=== PATIENT | female | born 1955 | race Caucasian/White ===

== ENCOUNTER 2019-01-01 06:43 | Outpatient (CLI) | payer OTHER, SELFPAY ==
[2019-01-01 10:55] LABS: Anion Gap 7.6 mmol/L (3-11); BUN 16 mg/dL (7-18); CO2 30.4 mmol/L (21.0-32.0); CREATININE 0.78 mg/dL (0.55-1.02); Calcium 9.1 mg/dL (8.5-10.1); Calculated LDL 156 mg/dL; Chloride 105 mmol/L (98-107); Cholesterol 225 mg/dL (50-200); Glucose 120 mg/dL (70-100); HDL Cholesterol 44 mg/dL (40-60); Sodium 143 mmol/L (136-145); Triglyceride 126 mg/dL (30-150)
[2019-01-01 11:02] LABS: Hemoglobin A1C 6.9 % (4.5-6.2)
== END 2019-01-01 07:03 ==
PROVIDERS: PCP Nurse Practitioner Family; Visit Provider Nurse Practitioner Family
DX: E78.5 Hyperlipidemia, unspecified (principal); I10 Essential (primary) hypertension; R73.03 Prediabetes
CPT/HCPCS: 36415; 80048; 80061; 83721; 83036

== ENCOUNTER 2019-01-09 14:26 | Outpatient (REF) | payer OTHER, MEDICARE, SELFPAY ==
--- NOTE | 2019-01-09 11:40 | PAPFT_PTH ---
PATIENT: Cee Muhammad LOC: [facility] U#:[id number] AGE/SX: 63/F ROOM: RE01/09/[address]: CHRISTINA Perez : 1955 BED: DIS: 01/09/2019 SPEC #: [id number] RECD: 01/12/19 12:52 STATUS: ENA REMerissa #: [id number] LAILA: 01/09/19 11:[address]: Shasta Hudson DEPT: [facility] Cytology RECD BY: Rosenda Perry Tissues: 1 - CX/ENDOCX FOR PAP SMEARS Procedures: PAP THIN PREP/UVM Screening HPV DNA PROBE Comments: [id number]
== END 2019-01-09 14:46 ==
LOC: LBN 14:26
PROVIDERS: PCP Nurse Practitioner Family; Visit Provider Nurse Practitioner Family
DX: Z12.4 Encounter for screening for malignant neoplasm of cervix (principal); Z11.51 Encounter for screening for human papillomavirus (HPV)
CPT/HCPCS: 88142; 87624

== ENCOUNTER 2019-03-10 00:46 | Outpatient (CLI) | payer OTHER, MEDICARE, SELFPAY ==
--- NOTE | 2019-03-10 15:08 | DI.DEXA_ITS ---
EXAM: XR DEXA BONE DENSITY W/WO NADIA INDICATION: Postmenopausal screening. COMPARISON: No exams were available for comparison TECHNIQUE: 2D digital imaging was performed. FINDINGS: The scanogram is unremarkable. For the left forearm, T-score of-0.3 and a Z-score of 1.3 are within the normal range. For the left hip a T-score 0.5 and a Z-score 1.7 are within the normal range. For t he lumbar spine a T-score of 1.2 and a Z-score of 3.0 are also within the normal range.
--- NOTE | 2019-03-10 15:08 | DI.MAMMO_ITS ---
EXAM: MG MAMMO SCREENING CLINICAL HISTORY: screening, Z12.31. TECHNIQUE: Mammograms were interpreted according to the usual protocol including computer analysis w [employer] CAD system, tomosynthesis and C-view imaging. COMPARISON: No exams were available for comparison FINDINGS: The breast tissue is composed of heterogeneous fibronodular densities, which lowers the sensitivity o f the study. There is no dominant mass. There are no suspicious calcifications. There has been no a ppreciable interval change when compared with prior images. IMPRESSION: There is no evidence of malignancy, category 1. Annual screening mammography is recommended. BI-RADS category C. BI-RADS Cat 1 - Negative Breast Density - Category C - Heterogeneously dense
== END 2019-03-10 01:06 ==
PROVIDERS: PCP Nurse Practitioner Family; Visit Provider Nurse Practitioner Family
DX: Z12.31 Encounter for screening mammogram for malignant neoplasm of breast (principal); Z78.0 Asymptomatic menopausal state; Z13.820 Encounter for screening for osteoporosis
CPT/HCPCS: 77063; 77067; 77080

== ENCOUNTER 2019-04-17 00:54 | Outpatient (CLI) | payer OTHER, MEDICARE, SELFPAY ==
[2019-04-17 09:01] LABS: ALT 32 U/L (14-59); AST 19 U/L (15-37); Albumin 3.8 g/dL (3.4-5.0); Alkaline Phosphatase 108 U/L (46-116); Anion Gap 10.3 mmol/L (3-11); BUN 13 mg/dL (7-18); Bilirubin, Total 0.4 mg/dL (0.2-1.0); CO2 26.7 mmol/L (21.0-32.0); CREATININE 0.69 mg/dL (0.55-1.02); Calcium 9.1 mg/dL (8.5-10.1); Calculated LDL 46 mg/dL; Chloride 107 mmol/L (98-107); Cholesterol 119 mg/dL (50-200); Glucose 110 mg/dL (70-100); HDL Cholesterol 60 mg/dL (40-60); Potassium 3.7 mmol/L (3.5-5.1); Sodium 144 mmol/L (136-145); Total Protein 6.9 g/dL (6.4-8.2); Triglyceride 65 mg/dL (30-150)
== END 2019-04-17 01:14 ==
PROVIDERS: PCP Nurse Practitioner Family; Visit Provider Nurse Practitioner Family
DX: E11.9 Type 2 diabetes mellitus without complications (principal); E78.5 Hyperlipidemia, unspecified
CPT/HCPCS: 36415; 80053; 80061

== ENCOUNTER 2019-05-01 07:29 | Day surgery (SDC) | payer OTHER, MEDICARE, SELFPAY ==
[2019-05-01 07:42] VITALS: BP 138/72; PULSE 63; RESP 18; TEMP 36.1; O2SAT 97
--- NOTE | 2019-05-01 08:20 | HPE_ITS ---
Date of service: 05/01/19 Time of Service: 08:20 Assessment and Plan Assessment and plan (1) Encounter for screening colonoscopy: Status: Acute Assessment and plan: I advised colonoscopy. The procedure was described including the risks of perforation with need for surgery or bleeding. Prep instructions discussed. Patient agrees to proceed. History of Present Illness Narrative: 63 y/o female with history of HTN, PB, hyperlipidemia and Pre- Diabetes presents for colonoscopy screening pre-op. Her last screening was in 2008, which was unremarkable. She denies a family history of colon cancer. She denies any changes in bowel habits including bloody or black tarry stools, abdominal pain, diarrhea or constipation. She denies constitutional symptoms. Denies use of marijuana or any other recreational or illegal drugs. She denies chest pain, palpitations, dyspnea or dyspnea with exertion. She walks on her treadmill x 1 hr/day. She denies prior history or family history of adverse reactions or complications with anesthesia. She denies having any implanted metal in her body. Review of Systems All systems reviewed & are unremarkable except as noted in HPI and below PFSH Medical History Essential hypertension (Chronic) Essential tremor (Chronic) Hyperlipidemia (Chronic) Obstructive sleep apnea (Chronic) CPAP. Original PSG 01/19/14 Type 2 diabetes mellitus (Chronic) Vaginal atrophy (Chronic) Surgical History History of bilateral tubal ligation (Acute ~1997) S/P ORIF (open reduction internal fixation) fracture (Acute 07/30/11) Right fibula Family History Mother Type 2 diabetes mellitus Breast cancer in her 60s Macular degeneration Father Hypertension Hyperlipidemia Heart disease Chronic lymphocytic leukemia Skin cancer Hodgkins lymphoma Sister No problems noted. Sister Hyperlipidemia Type 2 diabetes mellitus Hypothyroidism Hypertension Sister Osteopenia Maternal Grandfather , at 80 No problems noted. Maternal Grandmother , at 55 of rheumatic heart disease Rheumatic heart disease Paternal Grandfather , at 78 Bladder cancer Prostate cancer Heart disease Paternal Grandmother , at 74 Type 2 diabetes mellitus Heart disease Social History Smoking/Tobacco Use Status: Never Second Hand Exposure: No Alcohol Intake: current Alcohol Intake frequency: holidays/special occasions only Drug use: Never Substance use type: does not use Caregiver/Support person: No Household members: spouse Housing: house Communication Needs: None Do you need help understanding health information?: Never Pets and animals: No Sexually active: Yes Do you think of yourself as: straight/heterosexual Current gender identity: female What is your relationship status?: How often do you talk on the phone with friends or family?: twice per week How often do you get together with friends or relatives?: once per week How often do you attend jehovah's witness or jain services?: 1-3 times per year Do you belong to any clubs or organized social groups?: yes Panel score (0-1 are the most socially isolated patients): 3 What type of physical activity do you participate in: other Details: treadmill Duration: 30-45 minutes/day Frequency: daily Dot/Sikhism: Congregation Special dot needs: No Seatbelt use: always Helmet use: Yes Helmet use: always Drive intox 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 Do you feel safe at home: Yes Do you feel safe in your relationship?: Yes Female Reproductive History Menstrual Menopause type: natural History History 0 Para Hx # Term Pregnancies Multiple births Hx # Pregnancies Ectopic pregnancies AB induced Hx Number of Living Children AB spontaneous Meds Home Medications and Allergies Home Medications Medication Instructions Recorded Confirmed Type conjugated estrogens 0.625 mg/gram 0.3125 mg VG .Twice a week #30 gm 01/09/19 05/01/19 Rx vaginal cream lisinopril 10 1 tab PO DAILY #90 tab 01/09/19 05/01/19 Rx mg-hydrochlorothiazide 12.5 mg tablet metformin 500 mg tablet 500 mg PO BID #180 tab 01/09/19 05/01/19 Rx pneumoc 13-noel conj-dip cr(PF) 0.5 0.5 ml IM ONCE #0.5 ml 01/09/19 04/16/19 Rx mL IM syringe rosuvastatin 10 mg tablet 10 mg PO DAILY #90 tab 01/09/19 05/01/19 Rx Allergies Allergy/AdvReac Type Severity Reaction Status Date / Time No Known Allergies Allergy Unverified 05/01/19 07:40 Exam Const General: healthy appearing and not in acute distress Nutritional Appearance: well nourished Orientation: oriented x3 [facility] Head: normal to inspection Eyes Sclera: sclerae normal Pupils: PERRL Neck Neck: no lymphadenopathy Thyroid: thyroid normal Resp Effort & Inspection: normal respiratory effort Auscultation: clear to auscultation bilaterally and no wheezes Cardio Rate: regular rate Rhythm: regular rhythm GI Inspection: non-distended Palpation: soft, no hepatosplenomegaly, no hernias and nontender Skin General skin exam: no rashes or lesions noted Neuro General: alert Cognition: normal cognition Extrem General: normal to inspection Psych Affect: normal affect Attitude: cooperative Results Last Vital Signs Temp 97.0 F L 05/01/19 07:42 Pulse 63 05/01/19 07:42 Resp 18 05/01/19 07:42 BP 138/72 05/01/19 07:42 Pulse Ox 97 05/01/19 07:42
--- NOTE | 2019-05-01 08:22 | W.PM.DSUDISC ---
Discharge Plan Disposition Patient Disposition: HOME Condition: Good Discharge Details Reason For Visit: Colonoscopy Attending Provider: Zoë Manning Primary Care Provider: Shasta Hudson Home Meds and New Rx's Prescriptions: Continued lisinopril-hydrochlorothiazide 10-12.5 mg tablet 1 tab PO DAILY Qty: 90 RF: 4 Prevnar 13 (PF) 0.5 mL syringe 0.5 ml IM ONCE Qty: 0.5 RF: 0 metformin 500 mg tablet 500 mg PO BID Qty: 180 RF: 4 rosuvastatin 10 mg tablet 10 mg PO DAILY Qty: 90 RF: 4 conjugated estrogens 0.625 mg/gram cream 0.3125 mg VG .Twice a week Qty: 30 RF: 4 Discharge Instructions Additional Instructions: Findings: Your colonoscopy was normal but the prep was poor and the colonoscopy could not be completed. Follow up: Consider repeat colonoscopy. Please call if you develop: fevers >101.5 Nausea or Vomiting Abdominal pain that is not transient DAY SURGERY UNIT POST COLONOSCOPY INSTRUCTIONS 1. Because there will be medication in your system for the next 24 hours, you may feel a little sleepy. Your coordination will be affected. Therefore: a. Do not drive or operate dangerous equipment for 24 hours. b. Do not drink alcohol beverages for 24 hours (not even beer). c. Plan to go home and rest for the day. 2. Generally there are no restrictions on your activity after a day or so has gone by, but you may feel a bit fatigued for a few days. 3 After you arrive home you may have a light meal and return to a normal diet as you can tolerate it without feeling sick to your stomach. 4. After surgery, you may feel pain or discomfort. This should be only transient, but if it persists please contact your doctor. 5. If there are any questions regarding the findings of your procedure, please feel free to contact your doctor. 6. If you are unable to contact your doctor with a problem, contact the hospital at [phone]. 7. Continue all your regular medications unless directed otherwise. I understand the above instructions and have no questions. Signature of Patient or Responsible Adult Escort Date/Time Name of Responsible Adult Escort Signature of Nurse Date/Time Activity:: Activity as Tolerated Diet:: As Tolerated Discharge Orders Discharge Orders: Discharge Order (Routine); Ordered 05/01/19 Ordered By: Zoë Manning DS: Diagnosis Discharge Diagnosis (1) Encounter for screening colonoscopy: Status: Acute
[2019-05-01] MEDS: Lactated Ringers 1,000 ML 80 ML IV (08:24)
[2019-05-01 10:13] VITALS: BP 129/68; PULSE 50; RESP 16; TEMP 36.3; O2SAT 99
--- NOTE | 2019-05-01 12:12 | COLE_ITS ---
DATE OF PROCEDURE: May 01, 2019 PREOPERATIVE DIAGNOSIS: Screening. POSTOPERATIVE DIAGNOSIS: Incomplete colonoscopy due to poor prep. SURGEON: Zoë Manning M.D. ANESTHESIA: General. INDICATIONS: This is a 63-year-old woman who presents for routine colon evaluation. Her last proced ure ten years ago was normal. She has no family history of colon cancer. PROCEDURE: The patient was placed in the left Reid position. Propofol was titrated to sedation. Di gital rectal examination revealed no abnormalities. The scope was advanced to the hepatic flexure. I was not able to traverse the corner despite abdominal pressure. The patient's prep was very margin al with about 40% of the colon wall being obscured. I therefore did not make a concerted effort to g o beyond the hepatic flexure, given the fact that the quality of her prep was so poor. The scope was slowly withdrawn with no large abnormalities noted, but a polyp could definitely be missed. She shreice erated the procedure well and was stable to recovery. I discussed with her the need to repeat the co lonoscopy. Her prep did not begin working until about 12:30 at night, so the next time we will plan to do a GoLYTELY prep and start earlier in the day. I will have my office contact her to reschedule. cc: CHRISTINA Perez
== END 2019-05-01 10:28 | disposition home or self-care (01) ==
PROVIDERS: PCP Nurse Practitioner Family; Visit Provider Surgery
PROC: 0DJD8ZZ Inspection of Lower Intestinal Tract, Via Natural or Artificial Opening Endoscopic (ICD-10-PCS; CPT 45378; principal; 2019-05-01 09:00)
DX: Z12.11 Encounter for screening for malignant neoplasm of colon (principal); G47.33 Obstructive sleep apnea (adult) (pediatric); I10 Essential (primary) hypertension; E11.9 Type 2 diabetes mellitus without complications; Z79.84 Long term (current) use of oral hypoglycemic drugs
CPT/HCPCS: 45378; NC

== ENCOUNTER 2019-06-05 06:10 | Day surgery (SDC) | payer OTHER, SELFPAY ==
[2019-06-05 06:27] VITALS: BP 142/72; PULSE 57; RESP 16; TEMP 36.4; O2SAT 98
[2019-06-05] MEDS: Lactated Ringers 1,000 ML 80 ML IV (06:45)
--- NOTE | 2019-06-05 07:20 | W.PM.HP.N ---
Date of service: 06/05/19 Time of Service: 07:20 Assessment and Plan Assessment and plan (1) Encounter for screening colonoscopy: Status: Acute Assessment and plan: I advised colonoscopy. The procedure was described including the risks of perforation with need for surgery or bleeding. Prep instructions discussed. Patient agrees to proceed. History of Present Illness Narrative: 63 y/o female with history of HTN, PB, hyperlipidemia and Pre-Diabetes presents for colonoscopy screening pre-op. Her last screening was in 2008, which was unremarkable. She denies a family history of colon cancer. She denies any changes in bowel habits including bloody or black tarry stools, abdominal pain, diarrhea or constipation. She denies constitutional symptoms. Denies use of marijuana or any other recreational or illegal drugs. She denies chest pain, palpitations, dyspnea or dyspnea with exertion. She walks on her treadmill x 1 hr/day. She denies prior history or family history of adverse reactions or complications with anesthesia. She denies having any implanted metal in her body. We attempted colonoscopy last month but her prep was poor. She had better results with the Snyppitytely prep. Review of Systems All systems reviewed & are unremarkable except as noted in HPI and below [facility] Medical History Essential hypertension (Chronic) Essential tremor (Chronic) Hyperlipidemia (Chronic) Obstructive sleep apnea (Chronic) CPAP. Original PSG 01/19/14 Type 2 diabetes mellitus (Chronic) Vaginal atrophy (Chronic) Surgical History History of bilateral tubal ligation (Acute ~1997) History of colonoscopy (Chronic) S/P ORIF (open reduction internal fixation) fracture (Acute 07/30/11) Right fibula Family History Mother Type 2 diabetes mellitus Breast cancer in her 60s Macular degeneration Father Hypertension Hyperlipidemia Heart disease Chronic lymphocytic leukemia Skin cancer Hodgkins lymphoma Sister No problems noted. Sister Hyperlipidemia Type 2 diabetes mellitus Hypothyroidism Hypertension Sister Osteopenia Maternal Grandfather , at 80 No problems noted. Maternal Grandmother , at 55 of rheumatic heart disease Rheumatic heart disease Paternal Grandfather , at 78 Bladder cancer Prostate cancer Heart disease Paternal Grandmother , at 74 Type 2 diabetes mellitus Heart disease Social History Smoking/Tobacco Use Status: Never Second Hand Exposure: No Alcohol Intake: current Alcohol Intake frequency: holidays/special occasions only Drug use: Never Substance use type: does not use Caregiver/Support person: No Household members: spouse Housing: house Communication Needs: None Do you need help understanding health information?: Never Pets and animals: No Sexually active: Yes Do you think of yourself as: straight/heterosexual Current gender identity: female What is your relationship status?: How often do you talk on the phone with friends or family?: twice per week How often do you get together with friends or relatives?: once per week How often do you attend zoroastrianism or anglican services?: 1-3 times per year Do you belong to any clubs or organized social groups?: yes Panel score (0-1 are the most socially isolated patients): 3 What type of physical activity do you participate in: other Details: treadmill Duration: 30-45 minutes/day Frequency: daily Dot/Tenriism: Mormonism Special dot needs: No Seatbelt use: always Helmet use: Yes Helmet use: always Drive intox 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 Do you feel safe at home: Yes Do you feel safe in your relationship?: Yes Female Reproductive History Menstrual Menopause type: natural History History 0 Para Hx # Term Pregnancies Multiple births Hx # Pregnancies Ectopic pregnancies AB induced Hx Number of Living Children AB spontaneous Meds Home Medications and Allergies Home Medications Medication Instructions Recorded Confirmed Type conjugated estrogens 0.625 mg/gram 0.3125 mg VG .Twice a week #30 gm 01/09/19 06/05/19 Rx vaginal cream lisinopril 10 1 tab PO DAILY #90 tab 01/09/19 06/05/19 Rx mg-hydrochlorothiazide 12.5 mg tablet metformin 500 mg tablet 500 mg PO BID #180 tab 01/09/19 06/05/19 Rx pneumoc 13-noel conj-dip cr(PF) 0.5 0.5 ml IM ONCE #0.5 ml 01/09/19 04/16/19 Rx mL IM syringe rosuvastatin 10 mg tablet 10 mg PO DAILY #90 tab 01/09/19 06/05/19 Rx Allergies Allergy/AdvReac Type Severity Reaction Status Date / Time No Known Allergies Allergy Unverified 06/05/19 06:20 Exam Const General: healthy appearing and not in acute distress Nutritional Appearance: well nourished Orientation: oriented x3 [facility] Head: normal to inspection Eyes Sclera: sclerae normal Pupils: PERRL Neck Neck: no lymphadenopathy Thyroid: thyroid normal Carotids: no bruits Resp Effort & Inspection: normal respiratory effort Auscultation: clear to auscultation bilaterally and no wheezes Cardio Rate: regular rate Rhythm: regular rhythm GI Inspection: non-distended Palpation: soft, no hepatosplenomegaly, no hernias and nontender Skin General skin exam: no rashes or lesions noted Neuro General: alert Cognition: normal cognition Extrem General: normal to inspection Psych Affect: normal affect Attitude: cooperative Results Last Vital Signs Temp 97.5 F L 06/05/19 06:27 Pulse 57 L 06/05/19 06:27 Resp 16 06/05/19 06:27 BP 142/72 H 06/05/19 06:27 Pulse Ox 98 06/05/19 06:27
--- NOTE | 2019-06-05 08:09 | W.PM.DSUDISC ---
Discharge Plan Disposition Patient Disposition: HOME Condition: Good Discharge Details Reason For Visit: Colonoscopy Attending Provider: Zoë Manning Primary Care Provider: Shasta Hudson Home Meds and New Rx's Prescriptions: Continued lisinopril-hydrochlorothiazide 10-12.5 mg tablet 1 tab PO DAILY Qty: 90 RF: 4 Prevnar 13 (PF) 0.5 mL syringe 0.5 ml IM ONCE Qty: 0.5 RF: 0 metformin 500 mg tablet 500 mg PO BID Qty: 180 RF: 4 rosuvastatin 10 mg tablet 10 mg PO DAILY Qty: 90 RF: 4 conjugated estrogens 0.625 mg/gram cream 0.3125 mg VG .Twice a week Qty: 30 RF: 4 Discharge Instructions Additional Instructions: Findings: Your colonoscopy was normal. Follow up: Plan for routine screening in 10 years. Please call if you develop: fevers >101.5 Nausea or Vomiting Abdominal pain that is not transient DAY SURGERY UNIT POST COLONOSCOPY INSTRUCTIONS 1. Because there will be medication in your system for the next 24 hours, you may feel a little sleepy. Your coordination will be affected. Therefore: a. Do not drive or operate dangerous equipment for 24 hours. b. Do not drink alcohol beverages for 24 hours (not even beer). c. Plan to go home and rest for the day. 2. Generally there are no restrictions on your activity after a day or so has gone by, but you may feel a bit fatigued for a few days. 3 After you arrive home you may have a light meal and return to a normal diet as you can tolerate it without feeling sick to your stomach. 4. After surgery, you may feel pain or discomfort. This should be only transient, but if it persists please contact your doctor. 5. If there are any questions regarding the findings of your procedure, please feel free to contact your doctor. 6. If you are unable to contact your doctor with a problem, contact the hospital at [phone]. 7. Continue all your regular medications unless directed otherwise. I understand the above instructions and have no questions. Signature of Patient or Responsible Adult Escort Date/Time Name of Responsible Adult Escort Signature of Nurse Date/Time Activity:: Activity as Tolerated Diet:: As Tolerated Discharge Orders Discharge Orders: Discharge Order (Routine); Ordered 06/05/19 Ordered By: Zoë Manning DS: Diagnosis Discharge Diagnosis (1) Encounter for screening colonoscopy: Status: Acute
[2019-06-05 08:50] VITALS: BP 141/74; PULSE 52; RESP 16; TEMP 36.2; O2SAT 100
--- NOTE | 2019-06-05 10:22 | COLE_ITS ---
DATE OF PROCEDURE: June 05, 2019 PREOPERATIVE DIAGNOSIS: Screening. POSTOPERATIVE DIAGNOSIS: Normal colon. PROCEDURE: Colonoscopy. SURGEON: Zoë Manning M.D. ANESTHESIA: General. INDICATIONS: This is a 63-year-old woman whose last colonoscopy in 2008 was normal. She is asymptom atic and has no family history of colon cancer. We did attempt a colonoscopy about a month ago but h er prep was poor. She has done the GoLYTELY prep with better results. PROCEDURE: She was placed in the left Reid position. Propofol was titrated to sedation. Digital re ctal examination revealed no abnormalities. The scope was advanced to the cecum without difficulty. The ileocecal valve was clearly identified. I was unable to visualize about 20% of the cecum. The patient's prep was good. There were a few pools that had to be suctioned, but the visualization was adequate. The scope was slowly withdrawn with no abnormalities seen within the ascending, transverse , descending, sigmoid colon or rectum, including on retroflex view. She tolerated the procedure well and was stable to recovery. She will need a follow-up screening again in ten years or sooner if symptoms indicate. cc: Francisco Javier Perez
== END 2019-06-05 09:05 | disposition home or self-care (01) ==
PROVIDERS: PCP Nurse Practitioner Family; Visit Provider Surgery
PROC: 0DJD8ZZ Inspection of Lower Intestinal Tract, Via Natural or Artificial Opening Endoscopic (ICD-10-PCS; CPT 45378; principal; 2019-06-05 07:30)
DX: Z12.11 Encounter for screening for malignant neoplasm of colon (principal); I10 Essential (primary) hypertension; G47.33 Obstructive sleep apnea (adult) (pediatric); E11.9 Type 2 diabetes mellitus without complications; Z79.84 Long term (current) use of oral hypoglycemic drugs
CPT/HCPCS: 45378; NC; J2250; J3010

== ENCOUNTER 2020-01-14 02:47 | Outpatient (CLI) | payer OTHER, SELFPAY ==
[2020-01-14 07:39] LABS: Abs Immature Grans 0.02 10^3/uL (0.0-0.06); Absolute Basophil Count 0.07 10^3/uL (0.0-0.2); Absolute Eosinophil Count 0.25 10^3/uL (0.0-0.7); Absolute Lymphocyte Count 3.36 10^3/uL (1.2-3.4); Absolute Monocyte Count 0.56 10^3/uL (0.1-0.8); Basophils % 0.9; Eosinophils % 3.3; HCT 40.9 % (36.0-46.0); HGB 13.5 g/dL (11.2-15.7); Immature Grans % 0.3; Lymphocytes % 43.9; MCH 29.9 pg (27.0-33.0); MCV 90.7 fL (80-95); MPV 10.7 fL (8.0-11.0); Monocytes % 7.3; Neutrophils % 44.3; Platelet Count 295 10^3/uL (130-400); RBC 4.51 10^6/uL (3.93-5.22); RDW 11.8 % (11.7-14.6); RDW-SD 39.1 fL; WBC 7.66 10^3/uL (4.4-10.8)
[2020-01-14 08:42] LABS: BUN 16 mg/dL (7-18); CREATININE 0.73 mg/dL (0.55-1.02); Calcium 9.4 mg/dL (8.5-10.1); Calculated LDL 54 mg/dL (<100); Chloride 105 mmol/L (98-107); Cholesterol 133 mg/dL (<200); Glucose 107 mg/dL (74-106); HDL Cholesterol 70 mg/dL (40-60); Potassium 4.1 mmol/L (3.5-5.1); Sodium 143 mmol/L (136-145); Triglyceride 47 mg/dL (<150)
== END 2020-01-14 03:07 ==
PROVIDERS: PCP Nurse Practitioner Family; Visit Provider Nurse Practitioner Family
DX: E11.9 Type 2 diabetes mellitus without complications (principal)
CPT/HCPCS: 36415; 80048; 80061; 85025

== ENCOUNTER 2020-03-14 01:57 | Outpatient (CLI) | payer OTHER, SELFPAY ==
--- NOTE | 2020-03-14 06:45 | DI.MAMMO_ITS ---
EXAM: MAMMO SCREENING CLINICAL HISTORY: screening,Z12.39 TECHNIQUE: Mammograms were interpreted according to the usual protocol including computer analysis w [employer] CAD system, tomosynthesis and C-view imaging. COMPARISON: 2011 through 2018 FINDINGS: The breasts are composed of heterogeneously dense fibroglandular densities, Breast Density category C . No suspicious masses or suspicious microcalcifications are seen. No skin thickening or abnormal axillary lymph nodes are seen. There has been no significant change from prior exams. IMPRESSION: BI-RADS category 1, Negative mammogram. Yearly screening mammography is recommended. Breast Density category C, heterogeneously Dense. The mammogram demonstrates the patient's breast tissue is dense. Dense breast tissue is very common a nd is not abnormal but dense breast tissue can make it harder to find cancer on a mammogram. Also, de nse breast tissue may increase breast cancer risk. This information about the result of the mammogram report was provided to the patient to raise their awareness. Use this report when you speak with the patient about their risks for breast cancer, which includes their family history. At that time, you may recommend additional screening tests (Ultrasound or MRI) as they might be useful based on their r isk. A negative radiographic report should not delay biopsy if a dominant or clinically suspicious mass is present. Up to ten percent of cancers are not identified on mammography. A negative report may reinforce clinical impression. Adenosis and dense breasts may obscure an underlying neoplasm. False positive reports average 6 to 10%.
== END 2020-03-14 02:17 ==
PROVIDERS: PCP Nurse Practitioner Family; Visit Provider Nurse Practitioner Family
DX: Z12.31 Encounter for screening mammogram for malignant neoplasm of breast (principal); R92.2 Inconclusive mammogram
CPT/HCPCS: 77063; 77067

== ENCOUNTER 2021-01-25 03:28 | Outpatient (CLI) | payer OTHER, SELFPAY ==
[2021-01-25 07:41] LABS: Hemoglobin A1C 6.7 % (<5.7)
[2021-01-25 08:45] LABS: Anion Gap 9.8 mmol/L (3-11); BUN 18 mg/dL (7-18); CO2 29.2 mmol/L (21.0-32.0); CREATININE 0.7 mg/dL (0.55-1.02); Calcium 9.2 mg/dL (8.5-10.1); Calculated LDL 62 mg/dL (<100); Chloride 105 mmol/L (98-107); Cholesterol 141 mg/dL (<200); Glucose 109 mg/dL (74-106); HDL Cholesterol 68 mg/dL (40-60); Potassium 4.1 mmol/L (3.5-5.1); Sodium 144 mmol/L (136-145); TSH (W/Ref FT4) 2.08 uIU/mL (0.36-3.74); Triglyceride 55 mg/dL (<150)
== END 2021-01-25 03:29 | disposition home or self-care (01) ==
LOC: LBO 03:28
PROVIDERS: PCP Nurse Practitioner Family; Visit Provider Nurse Practitioner Family
DX: E11.9 Type 2 diabetes mellitus without complications (principal)
CPT/HCPCS: 36415; 80048; 80061; 83036; 84443

== ENCOUNTER 2021-03-16 02:37 | Outpatient (CLI) | payer OTHER, SELFPAY ==
--- NOTE | 2021-03-16 07:27 | DI.MAMMO_ITS ---
Exam(s) MAMMO SCREENING EXAM: MAMMO SCREENING CLINICAL HISTORY: screening,Z12.39 TECHNIQUE: Bilateral full field digital CC and MLO mammographic images were obtained with 3D tomosyn thesis and utilizing computer aided detection (CAD). COMPARISON: Available for comparison. FINDINGS: Masses/Architectural Distortion: None seen. Microcalcifications: No suspicious pleomorphic-type are seen. Skin Thickening/Nipple Retraction: None. IMPRESSION: 1. No significant interval change with no specific features of malignancy noted. 2. Unless there is more urgent need, screening mammography is recommended, as per [employer] guidelines. BI-RADS Category 1 - Negative Breast Density - Category C - Heterogeneously dense Breast density category C or D implies that the patient has dense breast tissue. Dense breast tissue is very common and is not abnormal but dense breast tissue can make it harder to find cancer on a ma mmogram. Also, dense breast tissue may increase their breast cancer risk. This information about the result of the mammogram report was provided to the patient to raise their awareness. Use this report when you speak with the patient about their risks for breast cancer, which includes their family hist ory. At that time, you may recommend for more screening tests (Ultrasound or MRI) as they might be us eful based on their risk. A negative radiographic report should not delay biopsy if a dominant or clinically suspicious mass is present. Up to ten percent of cancers are not identified on mammography. A negative report may reinforce clinical impression. Adenosis and dense breasts may obscure an underlying neoplasm. False positive reports average 6 to 10%. Patient will receive a letter notifying them of these results.
== END 2021-03-16 02:57 ==
PROVIDERS: PCP Nurse Practitioner Family; Visit Provider Nurse Practitioner Family
DX: Z12.31 Encounter for screening mammogram for malignant neoplasm of breast (principal)
CPT/HCPCS: 77063; 77067

== ENCOUNTER 2021-05-10 19:18 | Outpatient (REF) | payer OTHER, SELFPAY ==
[2021-05-12 19:03] LABS: COVID-19 RT-PCR UVMMC Result Negative (Negative)
== END 2021-05-10 19:19 | disposition home or self-care (01) ==
LOC: NCHCN 19:18
PROVIDERS: PCP Nurse Practitioner Family; Visit Provider Nurse Practitioner Family
DX: Z20.822 Contact with and (suspected) exposure to COVID-19 (principal)
CPT/HCPCS: U0003

== ENCOUNTER 2021-06-26 15:05 | Outpatient (REF) | payer OTHER, SELFPAY | END 2021-06-26 15:06 | disposition home or self-care (01) | LOC: LBN 15:05 | PROVIDERS: PCP Nurse Practitioner Family | DX: Z20.822 Contact with and (suspected) exposure to COVID-19 (principal) | CPT/HCPCS: U0003 ==

== ENCOUNTER 2022-01-30 01:31 | Outpatient (CLI) | payer OTHER, SELFPAY ==
[2022-01-30 08:28] LABS: ALT 28 U/L (14-59); AST 28 U/L (15-37); Albumin 3.8 g/dL (3.4-5.0); Alkaline Phosphatase 95 U/L (46-116); Anion Gap 7.1 mmol/L (3-11); BUN 16 mg/dL (7-18); Bilirubin, Total 0.4 mg/dL (0.2-1.0); CO2 32.9 mmol/L (21.0-32.0); CREATININE 0.8 mg/dL (0.55-1.02); Calcium 8.9 mg/dL (8.5-10.1); Calculated LDL 63 mg/dL (<100); Chloride 103 mmol/L (98-107); Cholesterol 147 mg/dL (<200); Glucose 112 mg/dL (74-106); HDL Cholesterol 71 mg/dL (40-60); Potassium 3.7 mmol/L (3.5-5.1); Sodium 143 mmol/L (136-145); Total Protein 7.4 g/dL (6.4-8.2); Triglyceride 68 mg/dL (<150)
[2022-01-30 10:28] LABS: Hemoglobin A1C 6.5 % (<5.7)
== END 2022-01-30 01:32 | disposition home or self-care (01) ==
PROVIDERS: PCP Nurse Practitioner Family; Visit Provider Family Medicine
DX: E11.9 Type 2 diabetes mellitus without complications (principal); E78.5 Hyperlipidemia, unspecified; I10 Essential (primary) hypertension
CPT/HCPCS: 36415; 80053; 80061; 83036

== ENCOUNTER → 2022-03-19 02:35 | Outpatient (CLI) | payer OTHER, SELFPAY ==
--- NOTE | 2022-03-19 16:55 | DI.MAMMO_ITS ---
Exam(s) MAMMO SCREENING EXAM: MAMMO SCREENING CLINICAL HISTORY: screening,Z12.39 TECHNIQUE: Mammograms were interpreted according to the usual protocol including computer analysis w [employer] CAD system, tomosynthesis and C-view imaging. COMPARISON: 2012 through 2020 FINDINGS: The breasts are composed of scattered fibroglandular densities, Breast Density category B. No suspicious masses or suspicious microcalcifications are seen. No skin thickening or abnormal axillary lymph nodes are seen. There has been no significant change from prior exams. IMPRESSION: BI-RADS Category 1, Negative mammogram Yearly screening mammography is recommended. Breast Density - Category B, scattered fibroglandular densities. A negative radiographic report should not delay biopsy if a dominant or clinically suspicious mass is present. Up to ten percent of cancers are not identified on mammography. A negative report may reinforce clinical impression. Adenosis and dense breasts may obscure an underlying neoplasm. False positive reports average 6 to 10%. Patient will receive a letter notifying them of these results.
== END ==
PROVIDERS: PCP Nurse Practitioner Family; Visit Provider Nurse Practitioner Family
DX: Z12.31 Encounter for screening mammogram for malignant neoplasm of breast (principal)
CPT/HCPCS: 77063; 77067

== ENCOUNTER 2023-02-01 02:32 | Outpatient (CLI) | payer OTHER, SELFPAY ==
[2023-02-01 07:33] LABS: Hemoglobin A1C 6.2 % (<5.7)
[2023-02-01 08:18] LABS: BUN 16 mg/dL (7-18); CREATININE 0.8 mg/dL (0.55-1.02); Calcium 9.4 mg/dL (8.5-10.1); Chloride 106 mmol/L (98-107); Estimated GFR 79.71 (mL/min/1.73m2); Glucose 130 mg/dL (74-106); Potassium 3.7 mmol/L (3.5-5.1); Sodium 145 mmol/L (136-145)
== END 2023-02-01 02:33 | disposition home or self-care (01) ==
PROVIDERS: PCP Nurse Practitioner Family; Visit Provider Nurse Practitioner Family
DX: Z00.00 Encounter for general adult medical examination without abnormal findings (principal); E11.9 Type 2 diabetes mellitus without complications; I10 Essential (primary) hypertension; E78.5 Hyperlipidemia, unspecified
CPT/HCPCS: 36415; 80048; 83036

== ENCOUNTER → 2023-03-22 00:42 | Outpatient (CLI) | payer OTHER, SELFPAY ==
--- NOTE | 2023-03-22 06:45 | DI.MAMMO_ITS ---
Exam(s) MAMMO SCREENING EXAM: MAMMO SCREENING CLINICAL HISTORY: screening,z12.39 TECHNIQUE: Mammograms were interpreted according to the usual protocol including computer analysis w [employer] CAD system, tomosynthesis and C-view imaging. COMPARISON: A through 2021 FINDINGS: The breasts are composed of scattered fibroglandular densities, Breast Density category B. No suspicious masses or suspicious microcalcifications are seen. No skin thickening or abnormal axillary lymph nodes are seen. There has been no significant change from prior exams. IMPRESSION: BI-RADS Category 1, Negative mammogram Yearly screening mammography is recommended. Breast Density - Category B, scattered fibroglandular densities. A negative radiographic report should not delay biopsy if a dominant or clinically suspicious mass is present. Up to ten percent of cancers are not identified on mammography. A negative report may reinforce clinical impression. Adenosis and dense breasts may obscure an underlying neoplasm. False positive reports average 6 to 10%. Patient will receive a letter notifying them of these results.
== END ==
PROVIDERS: PCP Nurse Practitioner Family; Visit Provider Nurse Practitioner Family
DX: Z12.31 Encounter for screening mammogram for malignant neoplasm of breast (principal)
CPT/HCPCS: 77063; 77067

== ENCOUNTER 2024-02-05 02:31 | Outpatient (CLI) | payer OTHER, SELFPAY ==
[2024-02-05 08:05] LABS: Hemoglobin A1C 6.5 % (<5.7)
[2024-02-05 08:49] LABS: ALT 23 U/L (14-59); AST 31 U/L (15-37); Albumin 3.6 g/dL (3.4-5.0); Alkaline Phosphatase 101 U/L (46-116); Anion Gap 8.5 mmol/L (3-11); BUN 14 mg/dL (7-18); Bilirubin, Total 0.47 mg/dL (0.2-1.0); CO2 29.5 mmol/L (21.0-32.0); CREATININE 0.8 mg/dL (0.55-1.02); Calcium 9.1 mg/dL (8.5-10.1); Calculated LDL 61 mg/dL (<100); Chloride 105 mmol/L (98-107); Cholesterol 142 mg/dL (<200); Estimated GFR 79.22 (mL/min/1.73m2); Glucose 123 mg/dL (74-106); HDL Cholesterol 65 mg/dL (40-60); Potassium 3.8 mmol/L (3.5-5.1); Sodium 143 mmol/L (136-145); TSH (W/Ref FT4) 1.99 uIU/mL (0.36-3.74); Total Protein 7.1 g/dL (6.4-8.2); Triglyceride 82 mg/dL (<150); Vitamin B12 231 pg/mL (193-986)
[2024-02-05 19:24] LABS: HBs Antibody, Quant 26.1 mIU/mL (See Note); Hep B Surface Ab Positive (See Note); Hepatitis B Core Antibody Negative (Negative); Hepatitis B Surface Antigen Negative (Negative)
[2024-02-05 19:34] LABS: Hepatitis C Ab w Rflx HCV PCR Negative (Negative)
[2024-02-05 19:42] LABS: HIV-1/2 Ag & Ab Screen Negative (Negative)
== END 2024-02-05 02:32 | disposition home or self-care (01) ==
PROVIDERS: PCP Nurse Practitioner Family; Visit Provider Nurse Practitioner Family
DX: E11.9 Type 2 diabetes mellitus without complications (principal); I10 Essential (primary) hypertension; E78.5 Hyperlipidemia, unspecified; Z11.4 Encounter for screening for human immunodeficiency virus [HIV]; Z11.59 Encounter for screening for other viral diseases
CPT/HCPCS: 36415; 80053; 80061; 86704; 86706; 86803; 87340; 87389; 82607; 83036; 84443

== ENCOUNTER 2024-03-24 02:11 | Outpatient (CLI) | payer OTHER, SELFPAY | END 2024-03-24 02:31 | LOC: DI 02:11 | PROVIDERS: PCP Nurse Practitioner Family; Visit Provider Nurse Practitioner Family | DX: Z12.31 Encounter for screening mammogram for malignant neoplasm of breast (principal) | CPT/HCPCS: 77063; 77067 ==

== ENCOUNTER 2025-02-03 03:10 | Outpatient (CLI) | payer OTHER, SELFPAY ==
[2025-02-03 07:34] LABS: HCT 41.0 % (36.0-46.0); HGB 13.7 g/dL (11.2-15.7); MCH 29.7 pg (27.0-33.0); MCHC 33.4 % (32.0-36.0); MCV 89 fL (80-95); MPV 10.6 fL (8.0-11.0); Platelet Count 272 10^3/uL (130-400); RBC 4.62 10^6/uL (3.93-5.22); RDW 12.2 % (11.7-14.6); RDW-SD 39.4 fL; WBC 8.59 10^3/uL (4.4-10.8)
[2025-02-03 08:25] LABS: Hemoglobin A1C 6.4 % (<5.7)
[2025-02-03 08:39] LABS: Anion Gap 8.6 mmol/L (3-11); BUN 15 mg/dL (7-18); CO2 29.4 mmol/L (21.0-32.0); Calcium 8.7 mg/dL (8.5-10.1); Chloride 105 mmol/L (98-107); Estimated GFR 92.41 (mL/min/1.73m2); Glucose 131 mg/dL (74-106); Potassium 3.8 mmol/L (3.5-5.1); Sodium 143 mmol/L (136-145); Vitamin B12 790 pg/mL (193-986)
== END 2025-02-03 03:11 | disposition home or self-care (01) ==
LOC: LBO 03:11
PROVIDERS: PCP Nurse Practitioner Family; Visit Provider Nurse Practitioner Family
DX: E11.9 Type 2 diabetes mellitus without complications (principal); I10 Essential (primary) hypertension
CPT/HCPCS: 36415; 80048; 85027; 82607; 83036

== ENCOUNTER 2025-03-25 04:29 | Outpatient (CLI) | payer OTHER, SELFPAY ==
--- NOTE | 2025-03-25 06:00 | DI.MAMMO_ITS ---
Exam(s) MAMMO SCREENING EXAM: MAMMO SCREENING CLINICAL HISTORY: screening,z12.39 TECHNIQUE: Bilateral full field digital CC and MLO mammographic images were obtained with 3D tomosynthesis and utilizing computer aided detection (CAD). COMPARISON: Comparison is made with prior examinations. FINDINGS: Masses/Architectural Distortion: No suspicious masses or areas of architectural distortion are present. Microcalcifications: No suspicious pleomorphic-type are seen. Skin Thickening/Nipple Retraction: None. IMPRESSION: 1. No significant interval change with no specific features of malignancy noted. 2. Unless there is more urgent need, screening mammography is recommended, as per [employer] guidelines. BI-RADS Category 1 - Negative Breast Density - Category B - There are scattered areas of fibroglandular density. Breast density Category C or D implies that the patient has dense breast tissue. Dense breast tissue can make it harder to find cancer on a mammogram. Dense breast tissue is also associated with an increased risk of breast cancer. This information about the result of the mammogram report was provided to the patient to raise their awareness. Use this report when you speak with the patient about their risks for breast cancer, which includes their family history. At that time, you may recommend additional screening tests (Ultrasound or MRI) as these tests may add significant information. A negative radiographic report should not delay biopsy if a dominant or clinically suspicious mass is present. Up to ten percent of cancers are not identified on mammography. A negative report may reinforce clinical impression. Adenosis and dense breasts may obscure an underlying neoplasm. False positive reports average 6 to 10%. Patient will receive a letter notifying them of these results.
== END 2025-03-25 04:49 ==
LOC: DI 04:29
PROVIDERS: PCP Nurse Practitioner Family; Visit Provider Nurse Practitioner Family
DX: Z12.31 Encounter for screening mammogram for malignant neoplasm of breast (principal)
CPT/HCPCS: 77063; 77067